=== PATIENT | male | born 1985 | race Caucasian/White ===

== ENCOUNTER 2019-01-13 14:21 | Emergency (ER) | payer OTHER ==
[~2019-01-13] VITALS: Ht 167.6 cm; Wt 77.1 kg
== END 2019-01-13 16:34 | disposition home or self-care (01) ==
LOC: ER 14:21
DX: S46.211A Strain of muscle, fascia and tendon of other parts of biceps, right arm, initial encounter (principal); X58.XXXA Exposure to other specified factors, initial encounter
CPT/HCPCS: 76882; 99283-25

== ENCOUNTER 2019-01-22 11:00 | Day surgery (SDC) | payer OTHER ==
[~2019-01-22] VITALS: Ht 167.6 cm; Wt 78.3 kg
--- NOTE | 2019-01-22 11:32 | NUR ---
PT ADMITTED TO [facility]. AGREES WITH PLANNED SURGERY. LUNG SOUNDS CLEAR.
--- NOTE | 2019-01-22 11:46 | NUR ---
REPORT TO HASEEB GUY RN.
--- NOTE | 2019-01-22 11:49 | NUR ---
TOOK OVER CARE FROM PEPE RAGLAND. RECIEVED REPORT CLIPPED ARM AND CHLORAPREP
--- NOTE | 2019-01-22 14:41 | NUR ---
PT NOT ABLE TO MOVE RIGHT UPPER EXT ARM IS PLACED IN SLING GOOD COLOR AND CAP REFILL WNL
--- NOTE | 2019-01-22 15:48 | NUR ---
recieved patient and report from rn. vss patient requested to go to bathroom escorted to bathroom. after assisted patient in getting dressed and removed iv arrived and discharge instrucitons gone over with and patient discharged. escorted out by rn.
== END 2019-01-22 23:05 | disposition home or self-care (01) ==
LOC: ORSCMMR 11:00 → ORD 12:30 → ORSCMMR 12:30
PROVIDERS: Orthopaedic Surgery
PROC: 0LM30ZZ Reattachment of Right Upper Arm Tendon, Open Approach (ICD-10-PCS; principal; 2019-01-22 12:30)
DX: S46.211A Strain of muscle, fascia and tendon of other parts of biceps, right arm, initial encounter (principal); W18.30XA Fall on same level, unspecified, initial encounter; F17.220 Nicotine dependence, chewing tobacco, uncomplicated
CPT/HCPCS: C1713; J0690; J1100; J1885; J2250; J2405; J3010; J7120